=== PATIENT | female | born 2005 | race Caucasian/White ===

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

== ENCOUNTER 2023-04-26 09:43 | Emergency (ER) | payer OTHER, SELFPAY ==
[2023-04-26 10:30] VITALS: BP 113/86; PULSE 91; RESP 18; TEMP 36.7; O2SAT 99; BMI 25.7
--- NOTE | 2023-04-26 10:31 | EXP.UTC ---
Discharge Plan Disposition Patient Disposition: Still a Patient Condition: Fair Prescriptions Prescriptions: No Action Kyleena 17.5 mcg/24 hrs (5 yrs) 19.5 mg intrauterine device intrauterine Referrals Follow up/Referrals: Teofilo Caballero [Primary Care Provider] - See instructions Clinical Impressions Clinical Impression: Closed head injury, Headache Discharge ED Provider: Chris Red [facility] [place] HPI General Stated complaint: johne Time Seen by Provider: 04/26/23 10:31 History of Present Illness Provider Complaint: She states that she has had head aches and blurry vision since she fell 5 days ago and hit her head on the ground. Related Data Home Medications Medication Instructions Recorded Confirmed levonorgestrel 17.5 mcg/24 hrs intrauterine 04/24/23 04/24/23 (5yrs) 19.5mg intrauterine device (Kyleena) Allergies Allergy/AdvReac Type Severity Reaction Status Date / Time No Known Allergies Allergy Verified 04/24/23 14:45 [facility] Disclaimer: The information contained in this section may have been updated after the patient was seen, as this information can be updated by other users. Medical History (Updated 04/26/23 @ 10:51 by Chris Red APRN) Anxiety Asthma Encounter for IUD insertion Kidney stone Migraine Urinary tract infection Surgical History No history of previous surgery Social History Smoking Status: Current every day smoker tobacco type: e-cigarettes alcohol intake: never substance use type: denies use current occupational status: employed Travel in the last 8 weeks: None ROS Obtained: Yes All systems reviewed & no additional complaints except as documented Constitutional Constitutional: Denies chills, Denies fever(s) and Reports headache(s) Eyes Eyes: Reports as per HPI, Reports blurry vision, Reports change in vision and Denies eye discharge ENT Ears, Nose, Mouth, and Throat: Denies dizziness, Denies otalgia, Reports headache(s), Denies neck pain and Denies sore throat Cardiovascular Cardiovascular: Denies chest pain Respiratory Respiratory: Denies shortness of breath, Denies chest congestion, Denies cough, Denies stridor and Denies wheezing Gastrointestinal Gastrointestingal: Denies nausea or vomiting Musculoskeletal Musculoskeletal: Reports system reviewed and no additional complaints, except as documented, Denies arthralgias and Denies neck pain Integumentary/Breasts Skin/Breast: Denies rash Neurologic Neurologic: Reports as per HPI, Denies dizziness, Reports headache(s) and Denies paresthesias Allergic/Immunologic Allergic/Immunologic: Denies wheezing Physical Exam General General appearance: alert and in no apparent distress Head Head exam: atraumatic, normocephalic and normal inspection Eye Eye exam: Present normal appearance, PERRL and EOMI ENT ENT exam: Present normal exam, normal oropharynx, mucous membranes moist, TM's normal bilaterally and normal external ear exam Neck Neck exam: Present normal inspection, full ROM and trachea midline; Absent meningismus or lymphadenopathy Chest Chest inspection: Present normal inspection and symmetric chest wall rise; Absent tenderness Respiratory Respiratory exam: Present normal lung sounds bilaterally; Absent respiratory distress Cardiovascular Cardiovascular exam: Present regular rate and normal rhythm; Absent JVD Abdominal Exam Abdominal exam: Present soft and normal bowel sounds; Absent distention, tenderness or guarding Extremities Exam Extremities exam: Present normal inspection, full ROM and normal capillary refill; Absent calf tenderness Back Exam Back exam: Present normal inspection; Absent tenderness Neurological Exam Neurological exam: Present alert and oriented X3 Psychiatric Psychiatric exam: Present normal affect and normal mood Skin Skin exam: Present warm, dry, intact and [place]
--- NOTE | 2023-04-26 10:48 | PC.NURSE ---
PATIENT SENT TO ER PER Alla TAYLOR APRN FOR FURTHER EVALUATION. REPORT GIVEN TO ER MD BY Alla TAYLOR APRN. PATIENT AMBULATED TO ER WITH [facility] STAFF ASSIST AT THIS TIME.
[2023-04-26 11:01] VITALS: BP 141/78; PULSE 95; RESP 16; TEMP 36.6; O2SAT 100; BMI 25.6
--- NOTE | 2023-04-26 11:03 | HMH.EDGENADL ---
Discharge Plan Disposition Patient Disposition: Still a Patient Condition: Fair Prescriptions Prescriptions: No Action Kyleena 17.5 mcg/24 hrs (5 yrs) 19.5 mg intrauterine device intrauterine Referrals Follow up/Referrals: Teofilo Caballero [Primary Care Provider] - See instructions Activity Restrictions/Add. Instructions Additional Instructions/Restrictions: There is no indication for emergent CT imaging of your head as neurosurgical intervention being needed is exceedingly low. Your symptoms are consistent with postconcussive headache. You may take Tylenol and ibuprofen as needed for your symptoms at home. I would recommend that you slowly progress with your return to work and return to play or contact activities. Specifically any 24 to 48 hours of minimal neurologic stimulation and once you are asymptomatic you may return to minimal activity and once you are asymptomatic you may return to full physical activity and then again once you are asymptomatic you may return to full physical activity with possible contact. This of course would be very difficult with small children and work but do your best to follow these progressive return to work and play activity guidelines. Return to the emergency department with any worsening symptoms or other concerns. Clinical Impressions Clinical Impression: Post-concussion headache Discharge ED Provider: Yovani Stevens General Adult HPI General Chief complaint: Headache Stated complaint: alvarogranjerry Time Seen by Provider: 04/26/23 10:31 Mode of Arrival: Ambulatory Source of Information: Patient Limitations: No Limitations Description of Symptoms (Recalled from ER Triage Doc. by RN): Patient reports hitting her head approx 1 week ago. States she has had a headache since then however it got worse last night. Complaint of headache and blurred vision. Patient states she has a history of migraines but this headache does not feel like her usual migraines. History of Present Illness HPI narrative: Patient is a 17-year-old female who was first evaluated in the urgent treatment clinic and sent over to the emergency department for further evaluation. She states that she was playing around with her boyfriend on her bed, roughhousing, and states that she fell off the bed and hit the posterior aspect of her head on the ground. At that time she had sniffing and pain and some associated dizziness. Since that time she has had some intermittent headaches which lasted a few hours but the most recent headache has not gone away since yesterday. She took 1200 mg of ibuprofen today without any improvement. She was actually in the emergency department with one of her friends who is here for some other symptoms and she states that the headache got to the point where it was so severe she needed to check in. She describes it as feeling like her brain is bouncing. And states that there is a significant amount of pressure in her head. She denies any changes in vision coordination numbness weakness tingling in the arms or legs or any neurologic symptoms. She states she just wants to feel better. Related Data Home Medications Medication Instructions Recorded Confirmed levonorgestrel 17.5 mcg/24 hrs intrauterine 04/24/23 04/24/23 (5yrs) 19.5mg intrauterine device (Kyleena) Allergies Allergy/AdvReac Type Severity Reaction Status Date / Time No Known Allergies Allergy Verified 04/24/23 14:45 [facility] Disclaimer: The information contained in this section may have been updated after the patient was seen, as this information can be updated by other users. Medical History (Updated 04/26/23 @ 11:07 by Yovani Stevens MD) Anxiety Asthma Encounter for IUD insertion Kidney stone Migraine Urinary tract infection Surgical History No history of previous surgery Social History Smoking
[2023-04-26 12:32] VITALS: BP 141/78; PULSE 95; RESP 16; TEMP 36.6; O2SAT 100
== END 2023-04-26 12:33 | disposition still patient (30) ==
LOC: UTC 10:51 → ER 10:57
PROVIDERS: Emergency Provider Student in an Organized Health Care Education/Training Program; PCP Pediatrics
DX: G44.309 Post-traumatic headache, unspecified, not intractable (principal); J45.909 Unspecified asthma, uncomplicated; F41.9 Anxiety disorder, unspecified; F17.290 Nicotine dependence, other tobacco product, uncomplicated; Z87.442 Personal history of urinary calculi; W06.XXXA Fall from bed, initial encounter
CPT/HCPCS: 96361; 96374; 96375; 99284; J0131

== ENCOUNTER 2023-07-31 12:56 | Outpatient (CLI) | payer OTHER, SELFPAY ==
[2023-07-31 12:57] LABS: Adenovirus,PCR Not Detected (NotDetected); Coronavirus 229E Not Detected (NotDetected); Coronavirus NL63 Not Detected (NotDetected); Coronavirus OC43 Not Detected (NotDetected); Coronovirus HKU1,PCR Not Detected (NotDetected); Human Metapneumovirus Not Detected (NotDetected); Influenza A, PCR Not Detected (NotDetected); Influenza AH1, 2009 Not Detected (NotDetected); Influenza AH1, PCR Not Detected (NotDetected); Influenza AH3,PCR Not Detected (NotDetected); Influenza B, PCR Not Detected (NotDetected); Rhinovirus/Enterovirus Not Detected (NotDetected)
[2023-07-31 12:58] LABS: Coronavirus 19, PCR Not Detected (NotDetected); Parainfluenza 1, PCR Not Detected (NotDetected); Parainfluenza 2, PCR Not Detected (NotDetected); Parainfluenza 3, PCR Not Detected (NotDetected); Parainfluenza 4, PCR Not Detected (NotDetected); Respiratory Syncytial Virus Not Detected (NotDetected)
== END 2023-07-31 23:59 ==
LOC: LAB.DROPOF 12:56
PROVIDERS: PCP Internal Medicine; Visit Provider Internal Medicine
DX: K52.9 Noninfective gastroenteritis and colitis, unspecified (principal); R10.9 Unspecified abdominal pain; R51.9 Headache, unspecified
CPT/HCPCS: 87632; 87635

== ENCOUNTER 2024-01-22 10:58 | Outpatient (CLI) | payer OTHER, SELFPAY ==
--- NOTE | 2024-01-22 11:02 | US_ITS ---
PROCEDURE: US TRANSVAGINAL CLINICAL INDICATION: Right Sided Pain COMPARISON: No exams were available for comparison FINDINGS: Transvaginal sonographic images of the pelvis were obtained. UTERUS: 8.0cm x 4.5 cmx 3.6 cm anteverted with a combined endometrial thickness of 1 mm. An IUD is in the correct position within the uterine cavity. One of the IUD arms appears to be within the uterine muscle. LEFT OVARY: 5.0cmx4.5cmx2.0cm with a volume of 23ml. Within the left ovary there appears to be a collapsed follicle that measures 2.5 cm x 3.4 cm x 0.7 cm. There are multiple small peripheral follicles. There is a small amount of fluid around the left ovary. RIGHT OVARY: 3.0cmx 2.6 cmx1.9 cm with a volume of 7.6ml. There are multiple small peripheral follicles. There is a dominant follicle measuring 1.6 cm x 0.7 cm x 1.4 cm. Both ovaries are seen and appear normal. Doppler flow to both ovaries are seen. There is moderate fluid in the cul-de-sac. IMPRESSION: 1. Anteverted uterus normal in shape and size. The endometrium is thin. 2. There is an IUD within the endometrium that appears to be in the correct position although one of the arms may be imbedded in the uterine wall. 3. Both ovaries are seen and appear normal. The left ovary appears to have a collapsed cyst. 4. There is moderate fluid in the cul-de-sac likely as result of a ruptured cyst. Dictated by: Rocky Rodriguez MD 01/22/2024 15:18 Rocky Rodriguez MD in [place] 01/22/2024 15:18
== END 2024-01-22 23:59 | disposition home or self-care (01) ==
LOC: RAD 10:59
PROVIDERS: PCP Physician Assistant; Visit Provider Obstetrics & Gynecology
DX: R10.9 Unspecified abdominal pain (principal)
CPT/HCPCS: 76830

== ENCOUNTER 2024-04-01 16:00 | Outpatient (CLI) | payer OTHER, SELFPAY ==
[2024-04-01 17:30] LABS: Basophils # 0.1 K/mm3 (0-0.2); Basophils % 0.9 % (0.1-2.0); Eosinophils # 0.1 K/mm3 (0.0-0.4); Eosinophils % 1.3 % (0.1-12.0); Hematocrit 41.8 % (37.0-47.0); Hemoglobin 13.9 g/dL (12.2-16.2); Lymphocytes # 2.2 K/mm3 (0.7-4.5); Lymphocytes % 36.5 % (10-50); Mean Corpuscular HGB Conc 33.3 g/dL (31.8-35.4); Mean Corpuscular Hemoglobin 30.1 pg (27.0-31.2); Mean Corpuscular Volume 90.5 fl (81-99); Mean Platelet Volume 8.3 fl (7.4-10.4); Monocytes # 0.4 K/mm3 (0.1-1.0); Monocytes % 6.6 % (1.7-9.3); Neutrophils # 3.3 K/mm3 (1.8-7.8); Neutrophils % 54.6 % (37.0-80.0); Platelet Count 268 K/mm3 (142-424); Red Blood Count 4.62 M/mm3 (4.20-5.40); Red Cell Distribution Width 13.6 % (11.5-17.5)
[2024-04-01 18:33] LABS: Alanine Aminotransferase 44 U/L (12-78); Albumin Level 4.3 g/dl (3.5-5.0); Albumin/Globulin Ratio 1.5 (1.1-1.8); Alkaline Phosphatase 58 U/L (38-126); Anion Gap 10.8 mEq/L (5-15); Aspartate Amino Transferase 35 U/L (14-36); Bilirubin,Total 0.5 mg/dl (0.2-1.3); Blood Urea Nitrogen 9 mg/dl (7-17); Calcium 9.4 mg/dl (8.4-10.2); Carbon Dioxide 24 mmol/L (22.0-30.0); Chloride 107 mmol/L (98-107); Estimated Glomerular Filt Rate 127 ml/min (>60); GFR (African American) 154 ML/MIN (>60); Globulin 2.8 g/dL (1.3-3.2); Glucose 73 mg/dl (74-100); Potassium 3.8 mmoL/L (3.5-5.1); Sodium 138 mmol/L (136-145); Total Protein,Serum 7.1 g/dl (6.3-8.2)
[2024-04-01 18:48] LABS: Free T4 (Free Thyroxine) 0.97 ng/dl (0.78-2.19)
[2024-04-01 19:01] LABS: Thyroid Stimulating Hormone 1.07 uIU/mL (0.465-4.68)
[2024-04-02 11:54] LABS: C-Reactive Protein 3.1 mg/L (0-4)
== END 2024-04-01 23:59 | disposition home or self-care (01) ==
LOC: LAB.DROPOF 04-02 11:11
PROVIDERS: PCP Internal Medicine; Visit Provider Internal Medicine
DX: R53.83 Other fatigue (principal); R63.4 Abnormal weight loss; Z68.22 Body mass index [BMI] 22.0-22.9, adult
CPT/HCPCS: 86140; 80050; 80053; 84439; 84443; 85025

== ENCOUNTER 2024-04-24 13:22 | Emergency (ER) | payer OTHER, SELFPAY ==
[2024-04-24 13:45] VITALS: BP 126/68; PULSE 109; RESP 20; TEMP 37.3; O2SAT 100; BMI 21.7
--- NOTE | 2024-04-24 13:55 | ED_ITS ---
Discharge Plan Disposition Patient Disposition: Home, Self-Care Condition: Good Prescriptions Prescriptions: New methylprednisolone [Medrol (Fernie)] 4 mg tablets,dose pack See Rx Instructions .Route .COMPLEX 6 Days Qty: 21 0RF Rx Instructions: taper pack; amoxicillin-pot clavulanate 875-125 mg Tablet 1 tab PO Q12H Qty: 20 0RF No Action Kyleena 17.5 mcg/24 hrs (5 yrs) 19.5 mg intrauterine device 1 device intrauterine ONCE spironolactone 100 mg tablet 100 mg PO DAILY Qty: 30 2RF escitalopram oxalate [Lexapro] 10 mg tablet 10 mg PO DAILY Qty: 30 2RF Referrals Follow up/Referrals: Mal Oviedo DO [Primary Care Provider] - See instructions Activity Restrictions/Add. Instructions Additional Instructions/Restrictions: *Monitor Temp, Over the counter Motrin or Tylenol as directed/as needed Tylenol every 4 hours and Motrin every 6 hours (as long as your family doctor has told you that you can take it) for fever or pain. and straight to ER if unable to lower temp less than 101.0 after medication given *Warm salt water gargles may help to soothe the throat *Throat Lozenges? *Warm fluids like tea with honey may help to soothe the throat? *Sleep elevated *Humidifier/Vaporizer Follow up IMMEDIATELY for new or worsening symptoms or no Noticeable improvement over the next 48-72 hours. 911 for difficulty breathing or swallowing You were tested for today for Upper Respiratory Panel with COVID19 your test result should be back in the next 24hours, you may check your results on the [facility] [employer] [facility] Clinical Impressions Clinical Impression: Sinusitis Instructions Patient Instructions: DI for Sinusitis, DI for Sinus Headache, DI for Fever ( Symptom) -- Adult Print Language Print Language: [place] Discharge ED Provider: Barbi Putnam [facility] [place] HPI General Stated complaint: dizziness, fever x week Time Seen by Provider: 04/24/24 13:56 History of Present Illness Provider Complaint: Patient states that she has been having sinus issues for about 5 weeks and thought they would get better states that she has taken OTC medications for it but hasnt helped much States that she is having pain and pressure in her ears and behind her eyes and has made her have some migraine headaches States that for the last 3-4 days she has been having fever and chills and at times coughing up some mucous draining in the back of her throat States that she thought she may have had flu or something too Related Data Home Medications ?Medication ?Instructions ?Recorded ?Confirmed levonorgestrel 17.5 mcg/24 hr (up 1 device intrauterine ONCE 04/24/23 04/24/24 to 5 yrs) 19.5mg intrauterine device (Kyleena) Previous Rx's ?Medication ?Instructions ?Recorded spironolactone 100 mg tablet 100 mg PO DAILY #30 tabs 02/10/24 escitalopram oxalate 10 mg tablet 10 mg PO DAILY #30 tabs 04/09/24 (Lexapro) amoxicillin 875 mg-potassium 1 tab PO Q12H #20 tabs 04/24/24 clavulanate 125 mg tablet methylprednisolone 4 mg tablets in See Rx Instructions .Route 04/24/24 a dose pack (Medrol (Fernie)) .COMPLEX 6 days #21 tabs Allergies Allergy/AdvReac Type Severity Reaction Status Date / Time diphenhydramine Allergy Unknown Verified 04/24/24 14:01 [From Benadryl] allergy reaction prochlorperazine AdvReac Anxiety Verified 03/31/24 15:08 [From Compazine] [facility] Disclaimer: The information contained in this section may have been updated after the patient was seen, as this information can be updated by other users. Medical History (Updated 04/24/24 @ 14:11 by Barbi Putnam APRN) Abnormal uterine bleeding (AUB) Deviated nasal septum Hypertrophy of nasal turbinates Polyp of left nasal cavity HSV (herpes simplex virus) anogenital infection Acne Anxiety Migraine Asthma Surgical History No history of previous surgery Family History Family/Other Cancer breast Social History Smoking Status: Current every day smoker tobacco type: e-cigarettes alcohol intake: never substance use type: denies use current occupational status: employed Travel in the last 8 weeks: None ROS Obtained: Yes All systems reviewed & no additional complaints except as documented and Yes Systems reviewed as appropriate & no additional complaints except as documented Constitutional Constitutional: Reports system reviewed and no additional complaints, except as documented, Reports as per HPI, Reports body ache, Reports chills, Reports fever(s) and Reports headache(s) ENT Ears, Nose, Mouth, and Throat: Reports system reviewed and no additional complaints, except as documented, Reports as per HPI, Reports dizziness (at times), Reports otalgia, Reports headache(s), Reports sinus pain and Reports sinus pressure Cardiovascular Cardiovascular: Reports system reviewed and no additional complaints, except as documented and Reports as per HPI Respiratory Respiratory: Reports system reviewed and no additional complaints, except as documented and Reports as per HPI Gastrointestinal Gastrointestingal: Reports system reviewed and no additional complaints, except as documented and as per HPI; Denies abdominal pain, cramping, diarrhea, nausea or vomiting Genitourinary Female Genitourinary: Reports system reviewed and no additional complaints, except as documented and Reports as per HPI Musculoskeletal Musculoskeletal: Reports system reviewed and no additional complaints, except as documented and Reports as per HPI Neurologic Neurologic: Reports dizziness (at times) and Reports headache(s) Physical Exam General General appearance: alert and in no apparent distress Head Head exam: atraumatic and normocephalic Eye Eye exam: Present normal appearance, PERRL and EOMI ENT ENT exam: Present mucous membranes moist Expanded ENT Exam TM/Canal exam: Bilateral TM: bulging Nose exam: Present sinus tenderness Throat exam: Present other (PND noted) Respiratory Respiratory exam: Present normal lung sounds bilaterally; Absent respiratory distress or wheezes Cardiovascular Cardiovascular exam: Present regular rate, normal rhythm and normal heart sounds Abdominal Exam Abdominal exam: Present soft and normal bowel sounds; Absent distention or tenderness Neurological Exam Neurological exam: Present alert, oriented X3 and normal gait Medical Decision Making Medical Records Screening: Per USPSTF and CDC recommendations, given the prevalence of disease in our region, it is our hospital?s policy to screen for HIV and viral Hepatitis for all patients aged 18 and over and those with ongoing risk factors. Ramirez Inquiry Pt receiving controlled substance: No Ramirez was queried for this patient: No
[2024-04-24 14:17] VITALS: BP 126/68; PULSE 109; RESP 20; TEMP 37.3; O2SAT 100
[2024-04-24 14:28] LABS: Adenovirus,PCR Not Detected (NotDetected); Bordetella Pertussis Not Detected (NotDetected); Chlamydophila Pneumoniae, PCR Not Detected (NotDetected); Coronavirus 19, PCR Not Detected (NotDetected); Coronavirus 229E Not Detected (NotDetected); Coronavirus NL63 Not Detected (NotDetected); Coronavirus OC43 Not Detected (NotDetected); Coronovirus HKU1,PCR Not Detected (NotDetected); Human Metapneumovirus Not Detected (NotDetected); Influenza A, PCR Not Detected (NotDetected); Influenza AH1, 2009 Not Detected (NotDetected); Influenza AH1, PCR Not Detected (NotDetected); Influenza AH3,PCR Not Detected (NotDetected); Influenza B, PCR Not Detected (NotDetected); Mycoplasma Pneumoniae, PCR Not Detected (NotDetected); Parainfluenza 1, PCR Not Detected (NotDetected); Parainfluenza 2, PCR Not Detected (NotDetected); Parainfluenza 3, PCR Not Detected (NotDetected); Parainfluenza 4, PCR Not Detected (NotDetected); Respiratory Syncytial Virus Not Detected (NotDetected); Rhinovirus/Enterovirus Not Detected (NotDetected)
== END 2024-04-24 14:19 | disposition home or self-care (01) ==
PROVIDERS: Emergency Provider Nurse Practitioner; PCP Internal Medicine
DX: J01.90 Acute sinusitis, unspecified (principal)
CPT/HCPCS: 87265; 87486; 87581; 87632; 87635; 99213; G0381

== ENCOUNTER 2024-06-17 14:56 | Outpatient (CLI) | payer OTHER, SELFPAY ==
--- NOTE | 2024-06-17 15:00 | XR_ITS ---
FINAL REPORT CLINICAL HISTORY: knee pain FINDINGS: Right knee Three views were obtained. There is no fracture or dislocation. The joint spaces appear normal. No soft tissue abnormality is identified. IMPRESSION: No acute process. Reviewed, Interpreted and Dictated by Alejandro Encarnacion III, MD Transcribed by Iris Parekh Authenticated and [facility]
--- NOTE | 2024-06-17 15:00 | XR_ITS ---
FINAL REPORT CLINICAL HISTORY: knee pain FINDINGS: Left knee Three views were obtained. There is no fracture or dislocation. The joint spaces appear normal. No soft tissue abnormality is identified. IMPRESSION: No acute process. Reviewed, Interpreted and Dictated by Alejandro Encarnacion III, MD Transcribed by Iris Parekh Authenticated and [facility]
== END 2024-06-17 23:59 | disposition home or self-care (01) ==
LOC: RAD 14:57
PROVIDERS: PCP Internal Medicine; Visit Provider Physician Assistant
DX: M25.561 Pain in right knee (principal); M25.562 Pain in left knee
CPT/HCPCS: 73562

== ENCOUNTER 2024-08-06 15:30 | Outpatient (CLI) | payer OTHER, SELFPAY ==
--- NOTE | 2024-08-06 15:34 | XR_ITS ---
PROCEDURE INFORMATION: Exam: XR Chest Exam date and time: 08/06/2024 3:40 PM Age: 18 years old Clinical indication: Abnormal findings; Other: Tb testing TECHNIQUE: Imaging protocol: Radiologic exam of the chest. Views: 2 views. COMPARISON: No relevant prior studies available. FINDINGS: Lungs: Unremarkable. No consolidation. Pleural spaces: Unremarkable. No pleural effusion. No pneumothorax. Heart/Mediastinum: Unremarkable. No cardiomegaly. Bones/joints: Unremarkable. IMPRESSION: No acute findings.
== END 2024-08-06 23:59 | disposition home or self-care (01) ==
LOC: RAD 15:32
PROVIDERS: PCP Internal Medicine; Visit Provider Internal Medicine
DX: R76.11 Nonspecific reaction to tuberculin skin test without active tuberculosis (principal); Z11.1 Encounter for screening for respiratory tuberculosis
CPT/HCPCS: 71046

== ENCOUNTER 2024-09-04 14:00 | Outpatient (RCR) | payer OTHER, SELFPAY ==
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
== END 2024-09-04 23:59 | disposition home or self-care (01) ==
LOC: PT 14:00
PROVIDERS: PCP Internal Medicine; Visit Provider Physician Assistant Surgical
DX: M22.41 Chondromalacia patellae, right knee (principal); M22.42 Chondromalacia patellae, left knee
CPT/HCPCS: 97014; 97110; 97163; G0283

== ENCOUNTER 2024-09-25 14:00 | Outpatient (RCR) | payer OTHER, SELFPAY ==
--- NOTE | 2024-09-25 17:18 | HMH.RHREAS ---
Rehab Reassessment Rehab OP Re-assessment Start: 09/14/24 10:06 Freq: Status: Active Protocol: Document 09/25/24 17:05 PHORNEVA (Rec: 09/25/24 17:18 PHORNE [id number]) E-signed By Enrique Wade, PT Lower Extremity Functional Index Activities Today, do you or would you have any difficulty at all with: a.Any of your usual work, housework or A little bit of difficulty school activities b. Your usual hobbies, recreational or Quite a bit of difficulty sporting activities c. Getting into or out of the bath No difficulty d. Walking between rooms No difficulty e. Putting on your shoes or socks No difficulty f. Squatting Moderate difficulty g. Lifting an object, like a bag of No difficulty groceries from the floor h. Performing light activities around No difficulty your home i. Performing heavy activities around No difficulty your home j. Getting into or out of a car No difficulty k. Walking 2 blocks Moderate difficulty l. Walking a mile Moderate difficulty m. Going up or down 10 stairs (about 1 Extreme difficulty or unable flight of stairs) to perform activity n. Standing for 1 hour A little bit of difficulty o. Sitting for 1 hour A little bit of difficulty p. Running on even ground A little bit of difficulty q. Running on uneven ground Quite a bit of difficulty r. Making sharp turns while running fast Extreme difficulty or unable to perform activity s. Hopping Extreme difficulty or unable to perform activity t. Rolling over in bed A little bit of difficulty LEFI Score Lower Extremity Functional Index Score 51 Rehab Re-assessment Subjective Subjective Pt reports pain generally is 2 -3/10, but with activity (i.e. : walking, stairs, recumbent bike) pain is 7/10 in B knees. She continues to report tenderness to palpation around B patella tendon areas. She reports feeling frustrated with lack of progress, but admits to not being able to consistently attend treatment sessions due to a multitude of reasons. Objective Objective Notes MMT B LE: HIP FLEX 4+/5, HIP ABD 4/5, HIP IR 4-/5, HIP ER 4 /5, KNEE FLEX 4+/5, KNEE EXT 4 +/5. TTP: 2/4 B patella tendon, medial patella. Pain 7/10 at worst LEFS: 51 this visit vs 50 on IE. Assessment Progress Assessment Slower Than Expected Assessment Notes Pt has been present for 5 therapy visits in the past 30 days. Pt has shown little decrease in overall pain and remains unable to squat or walk without increased pain. She has significantly improved LE ROM and muscle tightness. Skilled therapy services are indicated to increase B LE strength, reduce B LE pain, and improve all recreational activity in order to return pt to OF. Patient goals met ST/5 LT Plan Plan Continue per initial POC. Frequency of Therapy 2 x/wk Duration of therapy 4 wks Time and Billing Re-Eval Time 12 Re-Eval Billing Units 1 Charge for PT reassessment? Yes PHYSICIAN CERTIFICATION: I certify the specified therapy services for Ximena [email or web address] are required, authorized, and reviewed every 30 days.
== END 2024-09-25 23:59 | disposition home or self-care (01) ==
LOC: PT 14:00
PROVIDERS: PCP Internal Medicine; Visit Provider Physician Assistant Surgical
DX: M22.41 Chondromalacia patellae, right knee (principal); M22.42 Chondromalacia patellae, left knee
CPT/HCPCS: 97110; 97164

== ENCOUNTER 2024-12-30 16:18 | Outpatient (CLI) | payer OTHER, SELFPAY ==
[2024-12-30 15:16] LABS: Microscopic, Urine URINE MICROSCOPIC (MICROSCOPIC)
[2024-12-30 16:02] LABS: Appearance,Urine CLEAR (Clear); Bilirubin,Urine Negative (Negative); Blood, Urine Negative (Negative); Color,Urine YELLOW (Yellow); Glucose,Urine (UA) Negative (Negative); Ketones,Urine Negative (Negative); Leukocyte Esterase,Urine Negative (Negative); Nitrate,Urine Negative (Negative); PH,Urine 6.5 (5.0-8.5); Protein,Urine Negative (Negative); Specific Gravity, Urine 1.025 (1.005-1.030); Urobilinogen,Urine 0.2 EU/dl (0.2)
[2024-12-30 16:37] LABS: Bacteria,Urine 1+ /lpf
== END 2024-12-30 23:59 | disposition home or self-care (01) ==
LOC: LAB.DROPOF 16:18
PROVIDERS: PCP Internal Medicine; Visit Provider Internal Medicine
DX: J02.9 Acute pharyngitis, unspecified (principal); R30.0 Dysuria
CPT/HCPCS: 81001; 87070; 87086

== ENCOUNTER 2025-02-17 15:03 | Outpatient (CLI) | payer OTHER, SELFPAY ==
--- OUTSIDE RECORDS SUMMARY | 2025-02-17 15:06 | XMS_ITS | Clinical Summary ---
[facility] Address [address] [place] [address] Care Team Providers Care Ventilation Equipment Tender Name Role Phone Mal Oviedo DO Primary Care Provider + Allergies No known active allergies Medications valACYclovir (Valtrex) 1000 MG tablet Take 1 tablet by mouth Daily. 30 tablet 12 3 Active ferrous sulfate 325 (65 FE) MG tablet Take 1 tablet by mouth Daily With Breakfast. 30 tablet 1 02/05/2023 11:26 AM EDT 3 Active levonorgestrel (Kyleena) 19.5 MG intrauterine device IUD 1 each by Intrauterine route 1 (One) Time. Active amitriptyline (ELAVIL) 25 MG tabletIndication s:Post-concussio n headache TAKE ONE TABLET BY MOUTH EVERY NIGHT 30 tablet 3 Active Active Problems Problem Noted Date Diagnosed Date Seasonal allergic rhinitis due to pollen 023 Assessment & Plan (05/30/2023 5:35 PM EST): Seasonal pattern more spring and fall, currently doing well and declines need for medication. We could add antihistamine and/or Flonase in future for any breakthrough symptoms. Additional benefit of saline spray, nasal flushing. Advise concerns. Need for vaccination 05/30/2023 Iron deficiency anemia secon mikael to inadequate dietary iron intake 05/30/2023 Assessment & Plan (05/30/2023 5:33 PM EST): Modest anemia while noted during on 11/16/2022 with hemoglobin 10.5, hematocrit 30.8 MCV 84.8. Initiation of iron at that time which she took somewhat inconsistently, since delivery she has been taking maybe once weekly. Recheck of CBC with differential at this time with managed per results. Post-concussion headache 05/30/2023 Assessment & Plan (05/30/2023 5:35 PM EST): Patient slipped off the bed and hit her head about a month ago, was seen at [facility] where she was diagnosed with postconcussion syndrome with headache, she had a bit more mental fogginess, fatigue, with headache at the time, since then everything is resolved other than she has intermittent headache every other day or so with some light and sound sensitivity, although it is slowly improving. Due to persistence she would be interested in amitriptyline 25 mg at nighttime for suppression, will plan to follow-up in 1 month's time to reassess to ensure improving. Continue good hydration, she can still use as needed anti-inflammatories such as ibuprofen and Tylenol. No other concerning neurologic manifestations. Advise concerns. Vaping nicotine dependence, tobacco product 05/15 Assessment & Plan (05/30/2023 5:35 PM EST): Currently vaping daily, discussed importance of cessation as it has its own ongoing risks that are probably similar to smoking. She understands we will try to work on weaning off in the near future. Overweight (BMI 25.0-29.9) 05/30/2023 Assessment & Plan (05/30/2023 5:39 PM EST): Very minimally overweight by BMI 25.9, where she is just completed full-term few months ago. She continues to eat healthy and be active, she will likely continue to lose weight modestly over the next months, reinforced importance of healthy pattern of diet and activity. Encounter for general adult medical examination with abnormal findings 05/29/2023 Overview (05/29/2023): former patient of [facility], with a single visit at sixth-grade. no cardiac problems known. 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 Next line no surgeries hospitalizations. 9-year-old vaccinations given a [facility] with 14-year-old meningitis booster given as well seasonal allergic rhinitis. 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 Assessment & Plan (05/30/2023 5:32 PM EST): Former patient of [facility], with a single visit at sixth-grade. no cardiac problems known. 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 Next line no surgeries hospitalizations. 9-year-old vaccinations given a [facility] with 14-year-old meningitis booster given as well seasonal allergic rhinitis. 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 G1, P1 with January 2023 delivery. 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 Will need to start suppressive therapy with Valtrex at 35 weeks Assessment & Plan (05/30/2023 5:33 PM EST): As diagnosed per Dr. Morro Benz with HSV Ig G antibodies positive for type II HSV, placed on suppressive therapy with Valtrex at 35 weeks, subsequent use of Valtrex has not been used as she has had no recent flares. I discussed you can potentially do suppressive therapy, which would be recommended during but outside of , suppressive therapy could be considered or potential treatment for as needed flares. She is not currently using but would use the Valtrex as prescribed for flares. Assessment & Plan (08/02/2022 11:14 AM EST): Rx Valtrex 500 mg po bid prn outbreak. Mild intermittent asthma without complication Assessment & Plan (05/30/2023 5:34 PM EST): Historically mild intermittent asthma with relatively infrequent flare, she has had no recent flare that she can remember the last year or 2. She declines need for albuterol inhaler but advised if this recurs. Resolved Problems Problem Noted Date Diagnosed Date Resolved Date Third trimester 02/10/2023 care following vaginal delivery 02/05/2023 05/30/2023 Normal labor 02/02/2023 02/05/2023 Third trimester 01/25/2023 Poor growth affecting management of mother in third trimester 01/05/2023 02/05/2023 Pelvic pain 12/07/2022 02/05/2023 Vaginal discharge 12/07/2022 02/05/2023 Supervision of normal first teen 08/02/2022 09/26/2022 Overview (08/02/2022): 16 years of age Asthma 07/12/2022 09/26/2022 Asthma 07/12/2022 09/26/2022 07/12/2022 02/05/2023 Overview (08/08/2022): 16 yo ; Dates c/w 9 6/7 wk u/s. Check HSV IgG>positive Cell free DNA screen was low risk; gender reveal request related nausea, antepartum 07/12/2022 10/27/2022 Overview (08/02/2022): Declines Rx at this time. Try OTC Unisom and Vit B6. Not effective; went to ED for phenergan. Rx Phenergan 25 mg and Diclegis. Sore throat (viral) 06/12/2022 10/28/19 Assessment & Plan (06/12/2022 4:10 PM EST): Strep screen negative, please refer to assessment plan for viral syndrome further details Viral syndrome 06/12/2022 10/27/2022 Assessment & Plan (06/12/2022 4:10 PM EST): CurrentlyStrep screen negative, flu screen negative, COVID-19 testing negative. Consistent with another viral illness which is common in the community. Recommend symptomatic treatment saline spray, cool-mist humidifier, currently 3 and half weeks , avoid NSAID use but she could use Tylenol if necessary but still recommend using sparingly as such. Expected course of similar symptoms in the next few days and gradual improvement. Advised new onset fever or worsening. Less than 8 weeks gestation of 06/12/2022 09/26/2022 Assessment & Plan (06/12/2022 4:09 PM EST): Sexually active currently in pursuing with her partner, with amenorrhea with her last typical menses on 06/01/2022, last menses onset 05/05/2022. Urine test positive. Consistent with current of approximately 3 and half weeks. Recommend vitamin including folic acid, avoidance of medication such as NSAIDs during and caution taking any medications during especially the first trimester. Recommend good hydration, appropriate dietary intake, and she will set up an initial OB visit at her soonest convenience. Immunizations Immunization Administration Dates Next Due DTaP 02/03/2008, 5,04/25/2004,02/06,2003 Flu Vaccine Intradermal Quad 18-64YR 05/13/2023 HPV Quadrivalent 04/13/2015 Hep A, Unspecified 01/23/2011,02/17/2009 Hep B, Adolescent or Pediatric 04/25/2004,2003,2003 Hib (PRP-OMP) 06/06/2005, 4,02/07/2004,11/28 Hpv9 05/30/2018 IPV 04/01/2009, 5,02/07/2004,11/28 Influenza, Unspecified 04/21/2009 MMR 02/03/2008,06/06/2005 Meningococcal MCV4P (Menactra) 05/24/2020,2014 Pneumococcal Conjugate 13-Va lent (PCV13) 11/09/2004,04/25/2004,02/07/2004,11/28 Tdap 11/16/2022,04/13/2015 Varicella 02/17/2009,02/03/2008 Family History Medical History Relation Name Comments Breast cancer Maternal Grandmother Danielle Turner Fatherg ill Colon cancer Neg Hx Ovarian cancer Neg Hx Uterine cancer Neg Hx Relation Name Status Comments Father Alive Maternal Grandmother Danielle Turner Fathergill Mother Alive Social History Tobacco Use Types Packs/Day Years Used Date Smoking Tobacco: Never Passive Smoke Exposure: Yes Smokeless Tobacco: Never Tobacco Cessation:Counseling Given: Not Answered Alcohol Use Standard Drinks/Week Comments Not Currently 0 (1 standard drink = 0.6 oz pur e alcohol) AUDIT-C Answer Date Recorded Q1: How often do you have a drink containing alcohol? Never 02/02/2023 Q2: How many drinks containi ng alcohol do you have on a typical day when you are drinking? Patient does not drink Q3: How often do you have si x or more drinks on one occasion? Never 02/02/2023 Overall Financial Resource Strain (CARDIA) Answe r Date Recorded How hard is it for you to pa y for the very basics like food, housing, medical care, and heating? Not hard at all 02/02/2023 PHQ-2 Answer Date Recorded Retired PHQ-9: Brief Depression Severity Measure Score 0 05/30/2023 Exercise Vital Sign Answer Date Recorde d On average, how many days pe r week do you engage in moderate to strenuous exercise (like a brisk walk)? 5 days 02/02/2023 On average, how many minutes do you engage in exercise at this level? 30 min 02/02/2023 Hunger Vital Sign Answer Date Recorded Within the past 12 months, y ou worried that your food would run out before you got the money to buy more. Never true 02/03/20 23 Within the past 12 months, t he food you bought just didn't last and you didn't have money to get more. Never true 02/02/2023 PRAPARE - Transportation Answer Date Re corded In the past 12 months, has l ack of transportation kept you from medical appointments or from getting medications? No 01/13 In the past 12 months, has l ack of transportation kept you from meetings, work, or from getting things needed for daily living? No 02/02/2023 [place] Depression Scale Answer Date Recorded Retired [place] Depression Score 0 03/26/2023 Retired EPD Scale: Thought of Harming Self Unrec ognized value 03/26/2023 Abuse Screen Answer Date Recorded Unsafe at Home or Work/School Not on file Feels Threatened by Someone? Not on file 08/2023 Does Anyone Keep You from Co ntacting Others or Doint Things Outside the Home? Not on file 02/14/2024 Physical Sign of Abuse Present Not on file 0 02/14/2024 Housing Stability Answer Date Recorded Current Living Arrangements Not on file 08/2023 Potentially Unsafe Housing Conditions Not on mariajose e 02/14/2024 Family and Community Support Answer Don e Recorded Help with Day-to-Day Activities Not on file 02/14/2024 Lonely or Isolated Not on file 02/14/2024 Employment Answer Date Recorded Do you want help finding or keeping work or a lauren b? Not on file 02/14/2024 Disabilities Answer Date Recorded Concentrating, Remembering, or Making Decisions Difficulty Not on file 02/14/2024 Doing Errands Independently Difficulty Not on fi le 02/14/2024 Education Answer Date Recorded Help with school or training? Not on file Preferred Language Not on file 02/14/2024 PHQ-2 Answer Date Recorded Retired PHQ-9: Brief Depression Severity Measure Score 0 05/30/2023 Comments Unknown Sex and Gender Information Value Date Recorded Sex Assigned at Not on file Legal Sex Female 12:15 PM EDT Gender Identity Not on file Sexual Orientation Not on file Last Filed Vital Signs Vital Sign Reading Time Taken Comments Blood Pressure 122/80 05/30/2023 3:14 PM EST Pulse 88 05/30/2023 3:14 PM EST Temperature 36.8 C (98.2 F) 05/30/2023 3:14 PM EST Respiratory Rate 18 05/30/2023 3:14 PM EST Oxygen Saturation 99% 05/30/2023 3:14 PM EST Inhaled Oxygen Concentration - - Weight 64.1 kg (141 lb 6.4 oz) 05/30/2023 3:14 P M EST Height 157.5 cm (5' 2 ) 05/30/2023 3:14 PM EST Body Mass Index 25.86 05/30/2023 3:14 PM EST Plan of Treatment Health Maintenance Due Date Last Done Comments Annual Gynecologic Pelvic an d Breast Exam 2003 Pneumococcal Vaccine 0-49 (1 of 1 - PPSV23) 09/17/2009 11/09/2004, 04/25/2004, 02/07/2004, Additional history exists MENINGOCOCCAL B VACCINE (1 o f 2 - Standard) 2019 COVID-19 Vaccine (1 - 2023-2 5 season) 2024 ANNUAL PHYSICAL 05/30/2024 05/30/2023 INFLUENZA VACCINE 04/14/2025 05/13/2023, 04/21/2009 TDAP/TD VACCINES (3 - Td or Tdap) 11/16/2032 023, 04/13/2015 HPV VACCINES Completed 05/30/2018, 04/13/2015 MENINGOCOCCAL VACCINE Completed 05/24/2020, 015 CHLAMYDIA SCREENING Discontinued 07/12/2022 HEPATITIS C SCREENING Completed 07/12/2022 Procedures Procedure Name Priority Date/Time Associated Diagnosis Comments OBSTETRIC PANEL Routine 07/12/2022 10:36 AM EST CHLAMYDIA TRACHOMATIS, NEISSERIA GONORRHOEAE, PCR W/ CONFIRMATION Routine 07/12/2022 10:00 AM EST Encounter for supervision of normal first in first trimester from Last 3 Months or Most Recently Relevant to Health Maintenance Results * Obstetric Panel (07/12/2022 10:36 AM EST) Hepatitis B Surface Ag Negative Negative [facility] Hep C Virus Ab <0.1 0.0 - 0.9 s/co ratio [facility] Comment: Negative: < 0.8 Indeterminate: 0.8 - 0.9 Positive: > 0.9 HCV antibody alone does not differentiate between previous resolved infection and active infection. The CDC and current clinical guidelines recommend that a positive HCV antibody result be followed up with an HCV RNA test to support the diagnosis of acute HCV infection. [facility] offers Hepatitis C Virus (HCV) RNA, Diagnosis, MATTHEW (650543) and Hepatitis C Virus (HCV) Antibody with reflex to Quantitative Real-time PCR ([id number]). RPR Non Reactive Non Reactive [facility] Rubella Antibodies, IgG 3.22 Immune >0.99 index [facility] Comment: Non-immune <0.90 Equivocal 0.90 - 0.99 Immune >0.99 ABO Type O [facility] Rh Factor Positive [facility] Comment: Please note: Prior records for this patient's ABO / Rh type are not available for additional verification. Antibody Screen Negative Negative [facility] WBC 8.9 3.4 - 10.8 x10E3/uL [facility] RBC 4.46 3.77 - 5.28 x10E6/uL [facility] Hemoglobin 12.6 11.1 - 15.9 g/dL [facility] Hematocrit 38.4 34.0 - 46.6 % [facility] MCV 86 79 - 97 fL [facility] MCH 28.3 26.6 - 33.0 pg [facility] MCHC 32.8 31.5 - 35.7 g/dL [facility] RDW 12.9 11.7 - 15.4 % [facility] Platelets 354 150 - 450 x10E3/uL [facility] Neutrophil Rel % 72 Not Estab. % [facility] Lymphocyte Rel % 21 Not Estab. % [facility] Monocyte Rel % 5 Not Estab. % [facility] Eosinophil Rel % 1 Not Estab. % [facility] Basophil Rel % 1 Not Estab. % [facility] Neutrophils Absolute 6.5 1.4 - 7.0 x10E3/uL [facility] Lymphocytes Absolute 1.9 0.7 - 3.1 x10E3/uL [facility] Monocytes Absolute 0.4 0.1 - 0.9 x10E3/uL [facility] Eosinophils Absolute 0.1 0.0 - 0.4 x10E3/uL [facility] Basophils Absolute 0.1 0.0 - 0.2 x10E3/uL [facility] Immature Granulocyte Rel % 0 Not Estab. % [facility] Immature Grans Absolute 0.0 0.0 - 0.1 x10E3/uL [facility] 07/12/2022 10:3 6 AM EST 07/13/2022 Narrative [facility] - 07/13/2022 9:10 AM EST Performed at: 01 - [address] [id number] Cafeteria Or Lunchroom Checker: Prashanth Soliman PhD, Phone: [phone] Patient Fasting: N Morro Benz MD LAB BLOOD ORDERABLES Final Result [facility]) [address] [place] [address], [facility] [address] [place] [address], * Chlamydia trachomatis, Neisseria gonorrhoeae, PCR w/ confirmation - Swab, Urine, Clean Catch (07/12/2022 10:00 AM EST) Chlamydia trachomatis, MATTHEW Negative Negative [facility] Neisseria gonorrhoeae, MATTHEW Negative Negative [facility] Swab Urine specimen obtained by clean catch procedure / Unknown 07/12/2022 10:00 AM EST 07/13/2022 Comment:[facility]- [id number] Narrative [facility] ([facility]) - 07/15/2022 3:07 PM EST Performed at: [facility] [id number] Cafeteria Or Lunchroom Checker: Emerita Mims MD, Phone: [phone] Patient Fasting: N Morro Benz MD MICROBIOLOGY - GENERAL ORD ERABLES Final Result [facility] ([facility]) [address] [place] [address], [facility] [address] [place] [address], from Last 3 Months or Most Recently Relevant to Health Maintenance Insurance [facility] Advance Directives * CPR (Attempt to Resuscitate) (Latest Code Status on File) Date Activated Date Inactivated Comments 02/03/2023 4:27 PM 02/05/2023 5:27 PM Question Answer Comments Code Status (Patient has no pulse and is not breathing): CPR (Attempt to Resuscitate) Medical Interventions (Patie nt has pulse or is breathing): Full Release to patient: Routine Release * CPR (Attempt to Resuscitate) Date Activated Date Inactivated Comments 02/02/2023 9:25 PM 02/03/2023 4:27 PM Question Answer Comments Code Status (Patient has no pulse and is not breathing): CPR (Attempt to Resuscitate) Medical Interventions (Patie nt has pulse or is breathing): Full Support Release to patient: Routine Release Care Teams Ventilation Equipment Tender Relationship Specialty Start Date End Date Mal Oviedo DO [address] [place] [address] PCP - General Internal Medicine 12/11/24
[2025-02-17 15:57] LABS: Hematocrit 42.7 % (37.0-47.0); Hemoglobin 14.6 g/dL (12.2-16.2); Immature Granulocytes % 0.3 %; Mean Corpuscular HGB Conc 34.2 g/dL (31.8-35.4); Mean Corpuscular Hemoglobin 29.8 pg (27.0-31.2); Mean Corpuscular Volume 87.1 fl (81-99); Nucleated Red Blood Cells % 0 %; Platelet Count 337 K/mm3 (142-424); Red Blood Count 4.90 M/mm3 (4.20-5.40); Red Cell Distribution Width-SD 39.2 fL; White Blood Count 7.9 K/mm3 (4.8-10.8)
[2025-02-17 16:24] LABS: Chloride 101 mmol/L (98-107); Sodium 136 mmol/L (136-145)
[2025-02-17 16:25] LABS: Potassium 4.1 mmoL/L (3.5-5.1)
[2025-02-17 16:28] LABS: Anion Gap 11.1 mEq/L (5-15); Blood Urea Nitrogen 11 mg/dl (7-17); Calcium 9.8 mg/dl (8.4-10.2); Carbon Dioxide 28 mmol/L (22.0-30.0); Creatinine,Serum 0.80 mg/dl (0.52-1.04); Estimated Glomerular Filt Rate 91 ml/min (>60); GFR (African American) 110 ML/MIN (>60); Glucose 81 mg/dl (74-100); Magnesium 1.8 mg/dl (1.6-2.3)
[2025-02-17 16:59] LABS: Thyroid Stimulating Hormone 1.43 uIU/mL (0.465-4.68)
[2025-02-17 19:26] LABS: Free T4 (Free Thyroxine) 1.14 ng/dl (0.78-2.19)
== END 2025-02-17 23:59 | disposition home or self-care (01) ==
LOC: LAB 15:04
PROVIDERS: PCP Internal Medicine; Visit Provider Nurse Practitioner
DX: R00.0 Tachycardia, unspecified (principal); R00.2 Palpitations
CPT/HCPCS: 36415; 80048; 83735; 84439; 84443; 85025; 93270

== ENCOUNTER 2025-03-19 11:45 | Outpatient (CLI) | payer OTHER, SELFPAY ==
[2025-03-19 13:22] LABS: Coronavirus 19, PCR Not Detected (NotDetected); Influenza A, PCR Not Detected (NotDetected); Influenza B, PCR Not Detected (NotDetected)
--- OUTSIDE RECORDS SUMMARY | 2025-03-22 09:53 | XMS_ITS | Clinical Summary ---
[facility] Address [address] [place] [address] Care Team Providers Care Seniour Insight Manager Name Role Phone Mal Oviedo DO Primary [...] about a month ago, was seen at [facility] ER where she was diagnosed with postconcussion [...] problems known. 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 9-year-old vaccinations given a [facility] with 14-year-old meningitis booster given as well seasonal allergic rhinitis. 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 Assessment & Plan (05/30/2023 5:32 PM EST): Former patient of [facility] [facility], with a single visit at sixth-grade. no cardiac problems known. 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 9-year-old vaccinations given a [facility] with 14-year-old meningitis booster given as well seasonal allergic rhinitis. bilateral [place] Schlatter, diagnosis 06/18/2016. G1, P1 with January [...] things needed for daily living? No 02/02/2023 [place] Depression Scale Answer Date Recorded Retired [place] Depression Score 0 03/26/2023 Retired EPD Scale: [...] (1 o f 2 - Standard) 2019 ANNUAL PHYSICAL 05/30/2024 05/30/2023 COVID-19 Vaccine (1 - 2023-2 5 season) 2025 INFLUENZA VACCINE 04/14/2025 05/13/2023, 04/21/2009 TDAP/TD VACCINES [...] Hepatitis C Virus (HCV) RNA, Diagnosis, MATTHEW ([id number]) and Hepatitis C Virus (HCV) Antibody with reflex to Quantitative Real-time PCR ([id number]). RPR Non Reactive Non Reactive [facility] [...] 9:10 AM EST Performed at: 01 - [address] [id number] Assistant Director Of Security: Prashanth Soliman PhD, Phone: [phone] Patient Fasting: N Morro Benz MD LAB BLOOD ORDERABLES Final Result [facility]) [address] [place] [address], [facility] [address] [place] [address], * Chlamydia trachomatis, Neisseria gonorrhoeae, PCR w/ confirmation - Swab, Urine, Clean Catch (07/12/2022 10:00 AM EST) Chlamydia trachomatis, MATTHEW Negative Negative [facility] Neisseria gonorrhoeae, MATTHEW Negative Negative [facility] Swab Urine specimen obtained by clean catch procedure / Unknown 07/12/2022 10:00 AM EST 07/13/2022 Comment:[facility]- [id number] Narrative [facility] ([facility]) - 07/15/2022 3:07 PM EST Performed at: [facility] [id number] Assistant Director Of Security: Emerita Mims MD, Phone: [phone] Patient Fasting: N Morro Benz MD MICROBIOLOGY - GENERAL ORD ERABLES Final Result [facility] (AMBULATORY) [address] [place] [address], [facility] [address] [place] [address], from Last 3 Months or Most Recently Relevant to Health Maintenance Insurance [facility] Advance Directives * CPR (Attempt to [...] Release to patient: Routine Release Care Teams Seniour Insight Manager Relationship Specialty Start Date End Date Mal Oviedo DO [address] [place] [address] PCP - General Internal Medicine 12/11/24
== END 2025-03-19 23:59 ==
LOC: LAB.DROPOF 03-22 09:49
PROVIDERS: PCP Internal Medicine; Visit Provider Internal Medicine
DX: J02.9 Acute pharyngitis, unspecified (principal); R09.81 Nasal congestion; J34.89 Other specified disorders of nose and nasal sinuses; R19.7 Diarrhea, unspecified; R11.0 Nausea
CPT/HCPCS: 87631

== ENCOUNTER 2025-04-21 07:10 | Outpatient (CLI) | payer OTHER, SELFPAY ==
--- OUTSIDE RECORDS SUMMARY | 2025-04-21 07:13 | XMS_ITS | Clinical Summary ---
[facility] Address [address] [place] [address] Care Team Providers Care Slicer Machine Operator Name Role Phone Mal Oviedo DO Primary [...] about a month ago, was seen at [facility] ER where she was diagnosed with [...] problems known. 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 9-year-old vaccinations given a [facility] with 14-year-old meningitis booster given as well seasonal allergic rhinitis. 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 Assessment & Plan (05/30/2023 5:32 PM EST): Former patient of [facility], with a single visit at sixth-grade. no cardiac problems known. 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 9-year-old vaccinations given a [facility] with 14-year-old meningitis booster given as well seasonal allergic rhinitis. bilateral [place] Schlatter, diagnosis 06/18/2016. G1, P1 with January [...] things needed for daily living? No 02/02/2023 [place] Depression Scale Answer Date Recorded Retired [place] Depression Score 0 03/26/2023 Retired EPD Scale: [...] - Standard) 2019 ANNUAL PHYSICAL 05/30/2024 05/30/2023 INFLUENZA VACCINE 02/12/2025 05/13/2023, 04/21/2009 TDAP/TD VACCINES (3 - Td [...] support the diagnosis of acute HCV infection. [facility] offers Hepatitis C Virus (HCV) RNA, Diagnosis, MATTHEW ([id number]) and Hepatitis C Virus (HCV) Antibody with reflex to Quantitative Real-time PCR ([id number]). RPR Non Reactive Non Reactive [facility] [...] 9:10 AM EST Performed at: 01 - [facility] [address] [id number] Day Camp Counselor: Prashanth Soliman PhD, Phone: [phone] Patient Fasting: N us Morro Benz MD LAB BLOOD ORDERABLES Final Result [facility]) [address] [place] [address], [facility] [address] [place] [address], * Chlamydia trachomatis, Neisseria gonorrhoeae, PCR w/ confirmation - Swab, Urine, Clean Catch (07/12/2022 10:00 AM EST) Chlamydia trachomatis, MATTHEW Negative Negative [facility] Neisseria gonorrhoeae, MATTHEW Negative Negative [facility] Swab Urine specimen obtained by clean catch procedure / Unknown 07/12/2022 10:00 AM EST 07/13/2022 Comment:[facility]- [id number] Narrative [facility] ([facility]) - 07/15/2022 3:07 PM EST Performed at: [address] [id number] Day Camp Counselor: Emerita Mims MD, Phone: [phone] Patient Fasting: N us Morro Benz MD MICROBIOLOGY - GENERAL ORD ERABLES Final Result Performing Organization Address City/State/[facility] Co de Phone Number [facility] ([facility]) [address] [place] [address], [facility] [address] [place] [address], [place] [phone] from Last 3 Months or Most Recently Relevant to Health Maintenance [place] [address] [address] [place] [address] Advance Directives * CPR (Attempt to Resuscitate) [...] Release to patient: Routine Release Care Teams Slicer Machine Operator Relationship Specialty Start Date End Date Mal Oviedo DO [address] [place] [id number] PCP - General Internal Medicine 12/11/24
--- NOTE | 2025-04-21 07:30 | CT_ITS ---
FINAL REPORT TECHNIQUE: Thin section axial images were obtained through the paranasal sinuses without contrast. Reconstruction images were obtained from the axial data. Exam was performed using dose reduction techniques such as automated exposure control, adjustment of the mA and kV according to patient size, and use of iterative reconstruction technique. CLINICAL HISTORY: evaluation for chronic sinsusitis COMPARISON: None FINDINGS: There is mucoperiosteal thickening present in the right maxillary sinus. The other paranasal sinuses are clear. No air-fluid levels are identified. The maxillary infundibulum on the right side may be occluded secondary to mucoperiosteal thickening. The left maxillary infundibulum is normal in appearance. There is mild septal deviation. There is no acute osseous abnormality. Remaining soft tissues are unremarkable. The mastoid air cells are clear. IMPRESSION: Mucoperiosteal thickening in the right maxillary sinus, and the right maxillary infundibulum may be occluded. Otherwise, unremarkable CT of the sinuses. Reviewed, Interpreted and Dictated by Roz Huber MD Transcribed by Silvia Santiago Authenticated and [facility]
== END 2025-04-21 23:59 | disposition home or self-care (01) ==
LOC: RAD 07:11
PROVIDERS: PCP Internal Medicine; Visit Provider Nurse Practitioner
DX: J32.9 Chronic sinusitis, unspecified (principal); R93.89 Abnormal findings on diagnostic imaging of other specified body structures
CPT/HCPCS: 70486

== ENCOUNTER 2025-05-07 08:42 | Outpatient (CLI) | payer OTHER, SELFPAY ==
[2025-05-07 07:29] VITALS: BMI 23.6
--- NOTE | 2025-05-07 08:46 | XR_ITS ---
FINAL REPORT CLINICAL HISTORY: preoperative chest xr pt stated she vapes , no hypertension , no chest surgery pt is having a septoplasty FINDINGS: No acute pulmonary density is evident. There is no evidence of effusion or other pleural disease. The mediastinum has a normal appearance. The cardiac silhouette is unremarkable. IMPRESSION: Unremarkable chest exam. Reviewed, Interpreted and Dictated by Alla Kaplan MD Transcribed by Iris Parekh Authenticated and [facility]
--- NOTE | 2025-05-07 09:08 | ECG_ITS ---
APPROVED REPORT Exam: Resting ECG HR:89 bpm ECG Measurements Heart Rate 89 AXES AL 134 P 79 QRSd 73 QRS 78 QT 333 T 73 QTc 380 Conclusion SINUS RHYTHM NORMAL ECG UNCONFIRMED REPORT Electronically signed by : Pako Coto MD 05/08/2025 08:47:12
[2025-05-07 09:23] LABS: Hematocrit 38.9 % (37.0-47.0); Hemoglobin 12.9 g/dL (12.2-16.2); Mean Corpuscular HGB Conc 33.2 g/dL (31.8-35.4); Mean Corpuscular Hemoglobin 28.8 pg (27.0-31.2); Mean Corpuscular Volume 86.8 fl (81-99); Platelet Count 230 K/mm3 (142-424); Red Blood Count 4.48 M/mm3 (4.20-5.40); White Blood Count 5.1 K/mm3 (4.8-10.8)
[2025-05-07 09:26] LABS: Chloride 105 mmol/L (98-107); Potassium 3.5 mmoL/L (3.5-5.1); Sodium 137 mmol/L (136-145)
[2025-05-07 09:29] LABS: Anion Gap 9.5 mEq/L (5-15); Blood Urea Nitrogen 11 mg/dl (7-17); Carbon Dioxide 26 mmol/L (22.0-30.0); Creatinine Clearance Estimated 141 mL/min (50-200); Creatinine,Serum 0.60 mg/dl (0.52-1.04); Estimated Glomerular Filt Rate 126 ml/min (>60); GFR (African American) 153 ML/MIN (>60); Urine Pregnancy, HCG Qual. Negative (Negative)
[2025-05-07 09:30] LABS: Calcium 9.0 mg/dl (8.4-10.2); Glucose 57 mg/dl (74-100)
[2025-05-07 11:56] LABS: RBC Morphology Normal; Total Cells Counted 100
== END 2025-05-07 23:59 | disposition home or self-care (01) ==
LOC: PREOP 08:43
PROVIDERS: PCP Internal Medicine; Visit Provider Student in an Organized Health Care Education/Training Program
DX: Z01.810 Encounter for preprocedural cardiovascular examination (principal); Z01.811 Encounter for preprocedural respiratory examination; Z01.812 Encounter for preprocedural laboratory examination
CPT/HCPCS: 71046; 80048; 81025; 85007; 85014; 85018; 85048; 85049; 93005

== ENCOUNTER 2025-05-12 06:01 | Day surgery (SDC) | payer OTHER, SELFPAY ==
[2025-05-07 09:24] VITALS: BMI 24.3
[2025-05-12] VITALS (10 sets, daily range): BP systolic 113–127; BP diastolic 68–83; PULSE 109–134; RESP 16–18; TEMP 36.3–36.4; O2SAT 91–99; BMI 24.3
[2025-05-12] MEDS: LACTATED RINGERS 1000ML 1,000 ML 25 ML IV (07:03)
--- NOTE | 2025-05-12 07:16 | P.PNANES_ITS ---
[facility] Disclaimer: The information contained in this section may have been updated after the patient was seen, as this information can be updated by other users. Medical History Chronic maxillary sinusitis Retracted tympanic membrane Sinus pain Chronic sinusitis Sore throat (viral) Contraception management Abnormal uterine bleeding (AUB) Deviated nasal septum Hypertrophy of nasal turbinates Polyp of left nasal cavity Acne Anxiety Migraine Asthma Surgical History History of wisdom tooth extraction Family History Family/Other Cancer breast Social History (Updated 05/12/25 @ 06:52 by Alpa Garcia RN) Smoking Status: Current every day smoker tobacco type: e-cigarettes alcohol intake: never substance use type: denies use current occupational status: employed Travel in the last 8 weeks?: None Have you lived/traveled outside US in past 30 days?: No Contact w/someone who lives/traveled outside US past 30 days?: No Exposure to someone with infectious disease in past 14 days?: No Do you have a fever (greater than 100.4 F or 38 C)?: No Have you tested positive for COVID-19?: No Exposed to someone with COVID-19 in past 14 days?: No Do you have a sore throat?: No Do you have a cough?: No Do you have any weakness?: No Are you experiencing any nausea/vomitting?: No Do you have any diarrhea?: No Are you experiencing any unusual bleeding?: No Do you have any muscle aches/pain?: No Do you have any abdominal pain?: No Are you experiencing loss of taste or smell?: No [facility] Anesthesia Checklist Patient Identification Patient Identification: Arm Band and Verbal (Name & ) Structural Data Admitted From: Home Planned Operative Procedure/s: Nasal septoplasty Consent for Planned Operative Procedure(s) Verified: Yes Verified Documents: Surgical Consent NPO Status Verified Time NPO: 00:00 Chart Verification Results Verified: ECG Additional verifications Patient : No Anesthesia Reactions: No Airway Assessment Mallampati Score:: Class II C-Spine Mobility Assessed: Yes TMJ Mobility Assessed: Yes Dentition: Good Dentition Neurological Assessment Level of Consciousness: Awake, Alert and Appropriate Hx Seizures: No Numbness or tingling in extremities: No Anesthesia Plan Anesthesia Risk discussed: Yes Anesthesia Plan: Verified ASA Class: II Anesthesia Type: General
[2025-05-12] MEDS: LIDOCAINE 1% W/EPI 1:100,000 20ML VIAL 20 ML (08:51)
[2025-05-12] MEDS: OXYMETAZOLINE NASAL SPRAY 0.05% 15ML 15 ML NS (08:52)
--- NOTE | 2025-05-12 10:00 | EXP.ANES.I ---
[facility] Anesthesia Record Part I Anesthesia Record I Intake, IV Amount: 700 Hydration: Adequate Estimated blood loss (mL): 10 Urine output (mL): 0 Blood Products used (#): none Blood Pressure: 113/75 SaO2: 99 Pulse Rate: 120 Airway Patency: Patent Respiratory Rate: 18 Temperature: 97.5 F Patient is:: Mask O2 (NC to OA), Oral/Nasal airway and Somnolent Stable to PACU at:: 09:58
[2025-05-12] MEDS: KETOROLAC 30MG/ML VIAL 30 MG IV (10:10)
--- NOTE | 2025-05-12 10:10 | P.OP_ITS ---
Date of procedure: 05/12/25 Pre-op Diagnosis:: left deviated septum inferior turbinate hypertrophy chronic sinusitis Post-op Diagnosis:: same Procedure performed:: septoplasty bilateral inferior turbinate reduction bilateral maxillary sinusotomy, bilateral anterior ethmoidectomy functional endoscopic sinus surgery extracranial stereotactic image guidance Surgeon:: Jerrell Montero MD Anesthesia: GETA Estimated blood loss (mL): 10 Operative findings:: left septal deviation inferior turbinate hypertrophy bilateral chronic sinusitis Operative note:: The patient was brought to the OR in supine position. General anesthesia was induced. Patient was prepped and draped in usual fashion. Lidocaine with epinephrine 1:100,000 was injected into the patient's septum and heads of the inferior turbinate. I first started with the septoplasty portion of the procedure. The patient had a severe left cartilaginous and kvng septal deviation. Hemitransfixion incision was made on the left side of the septum.? The mucosal flap was elevated off the cartilage and bone. The bony cartilaginous junction was disarticulated inferiorly. A postage stamp sized portion of cartilage was then removed from the posterior and inferior aspect of the cartilaginous septum, taking care to leave over a oyvwcvxbgd-mad-n-half of cartilage both at the dorsal and caudal portions of the septum to support the nose. Fomon scissors were then used to make a releasing incision through the superior aspect of the bony septum and the deviated bony portions of the septum were then removed. I then turned my attention towards the turbinates. Stab incision was made at the head of each inferior turbinate. The mucosa was dissected off the underlying bone. The turbinate shaver was then used to perform a submucosal resection. The turbinates were then outfractured. I then began the sinus portion of the procedure. The image guidance system was set up and confirmed to be working appropriately. I first identified the left maxillary sinus os with a ball-tipped probe. The uncinate was reflected forward and then taken down with a backbiter and microdebrider. I then used the debrider to remove the anterior ethmoid bulla performing the partial ethmoidectomy. The same procedure was then performed on the right side. Again the maxillary sinus os was identified with the ball-tipped probe and the uncinate reflected forward. It was taken down with a backbiter and debrider. I then used the debrider to remove the anterior ethmoid bulla performing the partial ethmoidectomy. The patient's septum was then closed. The cartilage that was removed was morsilized and placed in the septal pocket. A 4-0 quilting stitch was used to reapproximate the mucosal flaps. Chromic was then used to close the hemitransfixion incision. Afrin-soaked xerogel was placed in the middle m eatuses bilaterally. Balderas splints were then fashioned across the patient's septum and secured into place. The nose and mouth were suctioned out. They were then turned back over to anesthesia to be awoken and extubated. Condition: stable Disposition: PACU Complications:: none
--- NOTE | 2025-05-12 12:37 | P.PNANES_ITS ---
[facility] Anesthesia Record Part II Anesthesia Record Part II Discharge Time: 10:28 Destination: Surgical Day Care (OP Surgery) PACU nurse assessment reviewed?: Yes Patient Condition:: Good Anesthesia Complications:: None Swallowing reflex intact?: Yes Airway Patency: Patent Cyanosis?: No Blood Pressure: 121/82 SaO2: 98 Respiratory Rate: 18 Pulse Rate: 130 Temperature: 97.5 F Mental Status: Alert & Oriented Pain level:: 0 Nausea and/or vomitting:: None Intake, IV Amount: 0 Hydration: Adequate
== END 2025-05-12 10:59 | disposition home or self-care (01) ==
PROVIDERS: PCP Internal Medicine; Visit Provider Student in an Organized Health Care Education/Training Program
PROC: (CPT 30520; principal; 2025-05-12 07:30)
DX: J34.2 Deviated nasal septum (principal); J34.3 Hypertrophy of nasal turbinates; J32.0 Chronic maxillary sinusitis; J45.909 Unspecified asthma, uncomplicated; F41.9 Anxiety disorder, unspecified; G43.909 Migraine, unspecified, not intractable, without status migrainosus; F17.290 Nicotine dependence, other tobacco product, uncomplicated; Z88.8 Allergy status to other drugs, medicaments and biological substances; Z79.51 Long term (current) use of inhaled steroids; Z79.891 Long term (current) use of opiate analgesic; Z79.899 Other long term (current) drug therapy
CPT/HCPCS: 30140; 30520; 31254; 31256; 61782; J1596; J1885; J2003; J2004; J2250; J2704; J3010; J7120

== ENCOUNTER 2025-06-21 10:08 | Outpatient (CLI) | payer OTHER, SELFPAY ==
[2025-06-21 15:11] LABS: Coronavirus 19, PCR Not Detected (NotDetected); Influenza A, PCR Not Detected (NotDetected); Influenza B, PCR Not Detected (NotDetected)
== END 2025-06-21 23:59 | disposition home or self-care (01) ==
LOC: LAB.DROPOF 06-22 11:51
PROVIDERS: PCP Internal Medicine; Visit Provider Student in an Organized Health Care Education/Training Program
DX: R52 Pain, unspecified (principal)
CPT/HCPCS: 87631

== ENCOUNTER 2025-06-23 10:13 | Outpatient (CLI) | payer OTHER, SELFPAY | END 2025-06-23 23:59 | disposition home or self-care (01) | LOC: LAB 10:14 | PROVIDERS: PCP Internal Medicine; Visit Provider Obstetrics & Gynecology | DX: Z34.90 Encounter for supervision of normal pregnancy, unspecified, unspecified trimester (principal); Z3A.00 Weeks of gestation of pregnancy not specified | CPT/HCPCS: 84144; 84702 ==

== ENCOUNTER 2025-07-01 13:15 | Outpatient (CLI) | payer OTHER, SELFPAY ==
--- OUTSIDE RECORDS SUMMARY | 2025-07-02 09:25 | XMS_ITS | Encounter Summary ---
Author Organization [facility] Address [address] [place] [id number] Care Team Providers Care Service Center Supervisor Name Role Phone Preet Mal Mick Primary Care Provider + Reason for Visit * Reason Onset Date Comments TRANSFER OF CARE 06/28/2025 Encounter Details Date Type Department Care Team (Late st Contact Info) Description 06/28/2025 Telephone [facility] OBGYN [address] [address] Zoë Lopez MD [address] [place] [address] TRANSFER OF CARE Social History Tobacco Use Types Packs/Day Years Used Date Smoking Tobacco: Never Passive Smoke Exposure: Yes Smokeless Tobacco: Never Alcohol Use Standard Drinks/Week Comments Not Currently [...] things needed for daily living? No 02/02/2023 [place] Depression Scale Answer Date Recorded [place] Depression Scale Total 0 03/26/2023 The thought of harming myself has occurred to me . Unrecognized value 03/26/2023 Abuse Screen Answer Date Recorded [...] on file Sexual Orientation Not on file documented as of this encounter Miscellaneous Notes * Telephone Encounter - Alix Jones MA - 06/28/2025 3:[address] Lopez prev pt. Pt's LMP 05/15/25 S/w pt she states she would like to schedule her NOB appt with Dr. Love if possible. States Dr. Love delivered her most recent child and she would like to switch to her. I told the patient I would send our front end software engineer and she would get her scheduled if dr. Love is taking new ob patients. She v/u * Telephone Encounter - Hannah Guillen RegSched Rep - 06/28/2025 1:07 PM EST Caller: XIMENA HERNANDEZ Best call back number: [phone] Who is your current provider: DR LOPEZ Who would you like your new provider to be: DR LOVE What are your reasons for transferring care: DR LOVE DELIVERED HER LAST BABY NEW OB LMP 05/15/25 documented in this encounter Plan of Treatment Not on file documented as of this encounter Visit Diagnoses Not on filedocumented in this encounter Care Teams Service Center Supervisor Relationship Specialty Start Date End Date Mal Oviedo DO [address] [place] [id number] PCP - General Internal Medicine 12/11/24 documented as of this encounter
--- OUTSIDE RECORDS SUMMARY | 2025-07-02 09:25 | XMS_ITS | Clinical Summary ---
Author Organization [facility] Address [address] [place] [address] Care Team Providers Care Conditioning Coach Name Role Phone Mal Oviedo DO Primary [...] about a month ago, was seen at [facility] ER where she was diagnosed with [...] problems known. 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 Next line no surgeries hospitalizations. 9-year-old vaccinations given a [facility] with 14-year-old meningitis booster given as well seasonal allergic rhinitis. 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 Assessment & Plan (05/30/2023 5:32 PM EST): [facility] visit at [facility]. no cardiac problems known. 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 Next line no surgeries hospitalizations. 9-year-old [facility]inations [facility] with 14-year-old meningitis booster given as well seasonal allergic rhinitis. bilateral [facility] Schl[facility], diagnosis 06/18/2016. G1, P1 with January [...] initial OB visit at her soonest convenience. Encounters Date Type Department Care Team Description 06/28/2025 Telephone [facility] OBGYN [address] [facility] [address] [place] [address] Zoë Lopez MD TRANSFER OF CARE from Last 3 Months Immunizations Immunization Administration Dates Next Due DTaP [...] things needed for daily living? No 02/02/2023 [place] Depression Scale Answer Date Recorded [place] Depression Scale Total 0 03/26/2023 The thought [...] Pneumococcal Vaccine 0-49 (1 of 1 - PPSV23, PCV20, or PCV21) 09/17/2009 11/09/2004, 04/25/2004, 02/07/2004, Additional history exists MENINGOCOCCAL B VACCINE (1 o f 2 - Standard) 2019 ANNUAL PHYSICAL 05/30/2024 05/30/2023 PAP SMEAR 09/17/2024 INFLUENZA VACCINE 02/12/2025 05/13/2023, 04/21/2009 TDAP/TD VACCINES [...] Hepatitis C Virus (HCV) RNA, Diagnosis, MATTHEW ([id number]) and Hepatitis C Virus (HCV) Antibody with reflex to Quantitative Real-time PCR ([id number]). RPR Non Reactive Non Reactive [facility] [...] - 07/13/2022 9:10 AM EST Performed at: - [facility] [id number] Pattern Molder: Prashanth Soliman PhD, Phone: [phone] Patient Fasting: N Morro Benz MD LAB BLOOD ORDERABLES Final Result [facility] (AMBULATORY) [address] [place] [address], [facility] [address] [place] [address], * Chlamydia trachomatis, Neisseria gonorrhoeae, PCR w/ confirmation - Swab, Urine, Clean Catch (07/12/2022 10:00 AM EST) Chlamydia trachomatis, MATTHEW Negative Negative [facility] Neisseria gonorrhoeae, MATTHEW Negative Negative [facility] Swab Urine specimen obtained by clean catch procedure / Unknown 07/12/2022 10:00 AM EST 07/13/2022 Comment:[facility]- [phone] Narrative [facility] (AMBUL[facility]) - 07/15/2022 3:07 PM EST Performed at: [address] [place] [id number] Pattern Molder: Emerita Mims MD, Phone: [phone] Patient Fasting: N Morro Benz MD MICROBIOLOGY - GENERAL ORD ERABLES Final Result Performing Organization Address City/[facility] [address]/[facility] Co de Phone Number [facility] (AMBULATORY) [address] [place] [address], [facility] [address] [place] [address], from Last 3 Months or Most Recently Relevant to Health Maintenance [facility] Advance Directives * CPR (Attempt to Resuscitate) [...] Release to patient: Routine Release Care Teams Conditioning Coach Relationship Specialty Start Date End Date Mal Oviedo DO [address] [place] [id number] PCP - General Internal Medicine 12/11/24
[2025-07-04 23:20] LABS: Neisseria gonorrhoeae, NAA Negative (Negative)
== END 2025-07-01 23:59 | disposition home or self-care (01) ==
LOC: LAB.DROPOF 07-02 09:23
PROVIDERS: PCP Internal Medicine; Visit Provider Obstetrics & Gynecology
DX: Z34.90 Encounter for supervision of normal pregnancy, unspecified, unspecified trimester (principal)
CPT/HCPCS: 87491; 87591